=== PATIENT | male | born 1965 | race Caucasian/White ===

== ENCOUNTER → 2017-08-04 | Outpatient (CLI) | payer BC ==
--- NOTE | 2017-08-04 17:12 | PCVCIMAG ---
APPROVED REPORT Exam: Stress Echocardiogram Indication: CAD, stent, hyperlipdemia, hypertension Stress Nurse: Kira Santana RN Status: routine Ht: 5 ft 5 in HR: 74 bpm BP: 130/80 mmHg Medical History Medical History: CAD s/p stent Procedure The patient underwent an Exercise Stress Test using the Reid Protocol. Blood pressure, heart rate, and EKG were monitored. An Echocardiogram was performed by microbiological laboratory technician in four stages in quad fashion. At peak stress, four selected images were obtained and placed side by side with resting images for comparison. Stress Test Details Stress Test: Exercise stress testing was performed using a Reid protocol. HR Resting HR: 74 bpmMax Heart Rate (APMHR): 167 bpm Max HR Achieved: 176 bpmTarget HR (85% APMHR): 141 bpm % of APMHR: 105 HR response to stress: Normal HR response to stress BP Resting BP: 130/80 mmHg Max BP: 160/82 mmHg ECG Resting ECG: Sinus Rhythm Stress ECG: Sinus Rhythm Clinical Reason for Termination: Maximal effort Exercise duration: 11 min 13 sec Highest Stage Achieved: Stage 4: 4.2 mph at 16% grade. Exercise capacity: 13.70 METs Overall Exercise Capacity for Age: Good Pre-Stress Echo The resting Echocardiogram showed normal left ventricular contractility with an estimated Ejection Fraction of about >55%. Mild inferior wall hypokinesis. Post-Stress Echo The stress Echocardiogram showed normal left ventricular contractility with an estimated Ejection Fraction of about 60-65%. Mild inferior wall hypokinesis. No new regional wall motion abnormalities. Clinical No clinical or ECG evidence for ischemia. Conclusion Clinical Response: Non-ischemic Exercise Capacity: Superior Stress ECG Response: Non-ischemic Stress Echo Images: Non-ischemic The left ventricle is normal in size and wall thickness in both the rest and stress images. Other Information Study Quality: Good <Conclusion> The left ventricle is normal in size and wall thickness in both the rest and stress images.
== END | disposition home or self-care (01) ==
LOC: PCVCIMAG 14:30
PROVIDERS: ATTEND Internal Medicine Cardiovascular Disease
DX: I25.10 Atherosclerotic heart disease of native coronary artery without angina pectoris (principal); E78.5 Hyperlipidemia, unspecified; I10 Essential (primary) hypertension; R07.89 Other chest pain; Z95.5 Presence of coronary angioplasty implant and graft
CPT/HCPCS: 93325; 93351